=== PATIENT | female | born 1995 | race Caucasian/White ===

== ENCOUNTER 2023-09-19 15:00 | Emergency (ER) | payer MEDICAID, SELFPAY ==
[2023-09-19] VITALS (12 sets, daily range): BP systolic 113–123; BP diastolic 77–90; PULSE 80–99; RESP 16; TEMP 36.7; O2SAT 95–100; BMI 28.3
--- NOTE | 2023-09-19 17:06 | ED_ITS ---
HPI - Neuro Symptoms/Deficit General Time Seen by Provider: 17:06 Date Seen: 09/19/23 Chief Complaint: Neuro Symptoms/Altered Deficit Stated Complaint: stroke like symptoms Time Seen by Provider: 09/19/23 17:06 Source: patient and RN notes reviewed Mode of arrival: ambulatory Limitations: no limitations History of Present Illness HPI Narrative: Patient is a 27-year-old female with history of anxiety daily THC use who comes to the emergency room for evaluation of confusion. Patient notes that she works quite early at [employer]. She states that for approximately 2 hours she was ringing up the wrong items, stating 1 thing and doing another and not realizing that she was making errors. She notes that she was somewhat shaky at that time. Her boss told her to go home which she did. She states she laid down for a while and felt somewhat better. Her mom states that she noticed that Karey to seems to be off as well. Does note a headache earlier that has now resolved. Does use THC daily and did use some this morning. Gets this through [facility]. Denies any other drug use or alcohol use. Mom states that she has been having a hard time sleeping and usually takes trazodone 100 mg at approximately 2000 hours. 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 Has been diagnosed with bipolar in the past but then as subsequent physician did not think she had bipolar disorder. Does suffer from significant anxiety and depression. Currently living with her mom. No numbness or tingling of the extremities. Patient also notes that she feels like there is a hole in her tooth on her lower gum. Mom states that she has been diagnosed with impacted molars in the past. Patient does state that it hurts in this area. She has not had fever or chills or drainage from this area. Adamantly denies any possibility of as she is not sexually active. Related Data Home Medications Medication Instructions Recorded Confirmed etonogestrel 68 mg subdermal 1 implant subdermal ONCE 09/23/22 11/08/22 implant (Nexplanon) propranolol 20 mg tablet mg PO BID 09/23/22 11/08/22 Previous Rx's Medication Instructions Recorded ketoconazole 2 % topical cream 1 applic topical BID #30 grams 11/08/22 spironolactone 50 mg tablet 50 mg PO BID #60 tabs 11/08/22 Allergies Allergy/AdvReac Type Severity Reaction Status Date / Time amoxicillin Allergy Severe Hives Verified 11/08/22 14:05 Review of Systems Status of ROS: Reports: 10 or more systems reviewed and unremarkable except as noted in History and below [facility] Social History Smoking Status: Former smoker How often do you have a drink containing alcohol: never How often do you have six or more drinks on one occasion: Never AUDIT-C Alcohol total score: 0 Non-prescribed substance use: marijuana (any form) Exam Narrative: Exam Narrative: Patient is alert and oriented. Seems very anxious. Tremulous with sweaty hands. Pupils are very dilated at 6 mm. They are reactive and EOM is full. Head is atraumatic. Neck is supple with full range of motion. Heart with regular rate and rhythm and lungs are clear. Moving all extremities. Strength and motor is intact. Patient noted to answer questions and then is corrected by her mom. GCS is 15. Oral cavity shows somewhat swollen gum from erupting 2s 18. No significant erythema, pain with palpation or drainage in this area. No swelling of the jaw line. Const: Vital Signs, click to edit/add: Vital Signs - 24 hr 09/19/23 15:08 09/19/23 17:46 09/19/23 17:55 Temperature 98.1 F Pulse Rate 94 Pulse Rate [Pulse Oximeter] 95 Respiratory Rate 16 Blood Pressure Blood Pressure [Ri ght Upper Arm] 113/77 117/82 Pulse Oximetry 95 99 Oxygen Delivery Me thod Room Air 09/19/23 18:00 09/19/23 18:01 09/19/23 18:02 Temperature Pulse Rate 95 92 99 Pulse Rate [Pulse Oximeter] Respiratory Rate Blood Pressure 123/90 H Blood Pressure [Ri ght Upper Arm] Pulse Oximetry 99 98 99 Oxygen Delivery Me thod 09/19/23 18:27 09/19/23 18:28 09/19/23 18:30 Temperature Pulse Rate 94 90 91 Pulse Rate [Pulse Oximeter] Respiratory Rate Blood Pressure 117/87 Blood Pressure [Ri ght Upper Arm] Pulse Oximetry 100 100 99 Oxygen Delivery Me thod 09/19/23 19:06 09/19/23 19:07 09/19/23 19:15 Temperature Pulse Rate 80 84 81 Pulse Rate [Pulse Oximeter] Respiratory Rate Blood Pressure 120/85 Blood Pressure [Ri ght Upper Arm] Pulse Oximetry 100 99 100 Oxygen Delivery Me thod Course Course ED Course: Differential diagnosis includes but is not limited to anxiety, panic attack, drug induced state, stroke, infection. We will check labs to include CBC, comprehensive panel, magnesium, COVID influenza and RSV, CRP, urinalysis and drug screen. Reevaluation(s) Reevaluation #1: Patient given 1 L of normal saline. Seems to be more calm. Labs are reassuring with normal white count as well as CRP. Other electrolytes within normal limits. Urinalysis without evidence of UTI tox screen is positive for THC only. Negative for COVID influenza and RSV. Reevaluation #2: Head CT plus neck and head angio negative for acute findings. Vital Signs Vital signs: Initial Vital Signs Temperature 98.1 F 09/19/23 15:08 Temperature Source Temporal Artery Scan 09/19/23 15:08 Pulse Rate 95 09/19/23 15:08 Respiratory Rate 16 09/19/23 15:08 Blood Pressure 113/77 09/19/23 15:08 Blood Pressure Mean 89 09/19/23 15:08 Blood Pressure Position Sitting 09/19/23 15:08 Pulse Oximetry 95 09/19/23 15:08 Oxygen Delivery Method Room Air 09/19/23 15:08 Vital Signs Temperature 98.1 F 09/19/23 15:08 Pulse Rate 95 09/19/23 15:08 Respiratory Rate 16 09/19/23 15:08 Blood Pressure 113/77 09/19/23 15:08 Pulse Oximetry 95 09/19/23 15:08 Oxygen Delivery Method Room Air 09/19/23 15:08 Temperature 98.1 F 09/19/23 15:08 Pulse Rate 81 09/19/23 19:15 Respiratory Rate 16 09/19/23 15:08 Blood Pressure 120/85 09/19/23 19:06 Pulse Oximetry 100 09/19/23 19:15 Oxygen Delivery Method Room Air 09/19/23 15:08 MDM - Neuro Symptoms/Deficit MDM Narrative Medical decision making narrative: 1. Altered mentation-resolved. Patient noted to have dilated pupils as well as recent THC use and sleep deprivation. I think that this is a combination and that patient had significant anxiety almost panic attack earlier today. I have no evidence of a stroke, infection or other cause. I do talk to patient about following up with primary MD. They are telling me that she is not sleeping well and getting up early. She is going to take the day off of work tomorrow and try to sleep in. I do think she needs closer follow-up and attention to her anxiety which I think is a large part of the issue today. However, I am worried about her THC use as it is daily. This seemed to surprise her mother. Recommend against daily and routine use of THC. Would rather have her have a medication review and possibly a counselor. 2. Disposition-home at this time. Return for worsening symptoms Medical Records Attestation: I reviewed the patient's medical records. Lab Data Attestation: I reviewed the patient's lab results. Labs: Lab Results 09/19/23 09/19/23 09/19/23 Range/Units 17:30 17:35 17:35 WBC 6.61 (4.50-11.00) K/uL RBC 4.59 (4.00-5.20) m/uL Hgb 14.3 (12.0-16.0) gm/dL Hct 41.7 (33.0-51.0) % MCV 91 (80-100) fL MCH 31 (26-34) pg MCHC 34 (32-36) gm/dL RDW Coeff of Maryuri 11.6 (11.5-15.5) % Plt Count 253 (140-440) K/uL Neut % (Auto) 69.1 (42.0-72.0) % Lymph % (Auto) 23.3 (20-44) % [place] % (Auto) 7.1 (0.0-11.0) % Eos % (Auto) 0.3 (0.0-7.0) % Baso % (Auto) 0.2 (0.0-3.0) % Neut # (Auto) 4.57 (1.7-7.0) K/uL Lymph # (Auto) 1.54 (0.90-2.90) K/uL [place] # (Auto) 0.50 (0.00-0.90) K/UL Eos # (Auto) 0.02 (0.00-0.50) K/uL Baso # (Auto) 0.01 (0.00-0.30) K/uL Abs Immat Gran (auto) 0.00 (0.00-0.30) K/uL Imm/Tot Granulo (auto) 0.0 % Sodium 136 (135-149) mmol/L Potassium 4.0 (3.6-5.1) mmol/L Chloride 102 (96-114) mmol/L Carbon Dioxide 22 (20-32) mmol/L Anion Gap 12 (7-15) mEq/L BUN 8 (5-24) mg/dL Creatinine 0.6 (0.5-1.5) mg/dL Estimated Creat Clear 115.47 Estimated GFR 125 ml/min Glucose 97 (60-115) mg/dL Calcium 9.5 (8.4-10.6) mg/dL Magnesium 2.2 Cancelled (1.5-2.6) mg/dL Total Bilirubin 0.5 (0.1-1.5) mg/dL AST 28 (12-35) U/L ALT 23 (4-35) U/L Alkaline Phosphatase 92 (40-150) U/L C-Reactive Protein 0.6 (0.5-1.0) mg/dL Total Protein 8.3 (6.0-8.3) g/dL Albumin 5.1 H (3.3-5.0) g/dL Urine Color (Yellow) Urine Appearance (Clear) Urine pH (5.0-8.5) Ur Specific [place] (1.000-1.030) Urine Protein (Negative) Urine Glucose (UA) (Negative) Urine Ketones (Negative) Urine Blood (Negative) Urine Nitrite (Negative) Urine Bilirubin (Negative) Urine Urobilinogen (0.2-1.0) Ur Leukocyte Esterase (Negative) Urine RBC (0-2) Urine WBC (0-5) Ur Squamous Epith Cells (None-Few) Urine Bacteria (None) Urine Opiates Screen (Negative) Ur Oxycodone Screen (Negative) Urine Methadone Screen (Negative) Ur Barbiturates Screen (Negative) U Tricyclic Antidepress (Negative) Ur Phencyclidine Scrn (Negative) Ur Amphetamines Screen (Negative) U Methamphetamines Scrn (Negative) U Benzodiazepines Scrn (Negative) Urine Cocaine Screen (Negative) U Marijuana (THC) Screen (Negative) Ur Drug Screen Comment SARS-CoV-2 (PCR) Negative SARS-CoV-2 (Negative) Influenza Type A (PCR) Negative PCR FLU A (Negative) Influenza Type B (PCR) Negative PCR FLU B (Negative) RSV (PCR) Negative PCR RSV (Negative) Lab Acknowledgement 09/19/23 09/19/23 Range/Units 18:40 20:27 WBC (4.50-11.00) K/uL RBC (4.00-5.20) m/uL Hgb (12.0-16.0) gm/dL Hct (33.0-51.0) % MCV (80-100) fL MCH (26-34) pg MCHC (32-36) gm/dL RDW Coeff of Maryuri (11.5-15.5) % Plt Count (140-440) K/uL Neut % (Auto) (42.0-72.0) % Lymph % (Auto) (20-44) % [place] % (Auto) (0.0-11.0) % Eos % (Auto) (0.0-7.0) % Baso % (Auto) (0.0-3.0) % Neut # (Auto) (1.7-7.0) K/uL Lymph # (Auto) (0.90-2.90) K/uL [place] # (Auto) (0.00-0.90) K/UL Eos # (Auto) (0.00-0.50) K/uL Baso # (Auto) (0.00-0.30) K/uL Abs Immat Gran (auto) (0.00-0.30) K/uL Imm/Tot Granulo (auto) % Sodium (135-149) mmol/L Potassium (3.6-5.1) mmol/L Chloride (96-114) mmol/L Carbon Dioxide (20-32) mmol/L Anion Gap (7-15) mEq/L BUN (5-24) mg/dL Creatinine (0.5-1.5) mg/dL Estimated Creat Clear Estimated GFR ml/min Glucose (60-115) mg/dL Calcium (8.4-10.6) mg/dL Magnesium (1.5-2.6) mg/dL Total Bilirubin (0.1-1.5) mg/dL AST (12-35) U/L ALT (4-35) U/L Alkaline Phosphatase (40-150) U/L C-Reactive Protein (0.5-1.0) mg/dL Total Protein (6.0-8.3) g/dL Albumin (3.3-5.0) g/dL Urine Color Yellow (Yellow) Urine Appearance Clear (Clear) Urine pH 7.5 (5.0-8.5) Ur Specific [place] 1.010 (1.000-1.030) Urine Protein Negative (Negative) Urine Glucose (UA) Negative (Negative) Urine Ketones Negative (Negative) Urine Blood Negative (Negative) Urine Nitrite Negative (Negative) Urine Bilirubin Negative (Negative) Urine Urobilinogen 0.2 (0.2-1.0) Ur Leukocyte Esterase Negative (Negative) Urine RBC 0-2 (0-2) Urine WBC 0-2 (0-5) Ur Squamous Epith Cells Few (None-Few) Urine Bacteria None (None) Urine Opiates Screen Negative (Negative) Ur Oxycodone Screen Negative (Negative) Urine Methadone Screen Negative (Negative) Ur Barbiturates Screen Negative (Negative) U Tricyclic Antidepress Negative (Negative) Ur Phencyclidine Scrn Negative (Negative) Ur Amphetamines Screen Negative (Negative) U Methamphetamines Scrn Negative (Negative) U Benzodiazepines Scrn Negative (Negative) Urine Cocaine Screen Negative (Negative) U Marijuana (THC) Screen POSITIVE A (Negative) Ur Drug Screen Comment See Note SARS-CoV-2 (PCR) (Negative) Influenza Type A (PCR) (Negative) Influenza Type B (PCR) (Negative) RSV (PCR) (Negative) Lab Acknowledgement Test Added Imaging Data CT scan - head: Attestation: I have reviewed the pertinent imaging results. My impression: No evidence of acute processes Radiologist's impression: No CT evidence of acute cortical infarct. No loss of costa white matter differentiation. No hyperdense vessels to suggest intracranial thrombus. No acute intracranial hemorrhage. No mass effect or midline shift. No hydrocephalus or extra-axial collections. White matter is within normal limits for age. No acute osseous abnormalities. And left maxillary sinus retention cyst. Paranasal sinuses and mastoid air cells are otherwise clear. Normal soft tissues. IMPRESSION: IMPRESSION:1. No CT evidence of acute cortical infarct. No acute intracranial hemorrhage. No other acute intracranial findings. Angio head and neck: Attestation: I have reviewed the pertinent imaging results. Radiologist's impression: CTA head: No proximal or vessel occlusion or flow-limiting stenosis. CTA neck: No flow limiting stenosis. No evidence of dissection. Discharge Plan Discharge Clinical Impression: Anxiety, Episode of confusion Patient Disposition: Home w/ Parent or Adult Condition: Improved Instructions: Anxiety (ED) Additional Instructions: Recommend decreasing caffeine at this time. I would like you to follow-up with your primary MD to see if there should be a change in your medications to assist with sleep. Try to sleep in tomorrow morning. Recommend against daily THC use. Return to the emergency room for worsening symptoms. Activity Level: No Restrictions Discharge Diet: Regular Prescriptions: No Action propranolol 20 mg tablet PO BID Patient Comments: TAKE 1 TABLET BY MOUTH TWICE DAILY FOR TREMOR Nexplanon 68 mg implant 1 implant subdermal ONCE Rx Instructions: as a single dose spironolactone 50 mg tablet 50 mg PO BID Qty: 60 1RF ketoconazole 2 % cream 1 applic topical BID Qty: 30 1RF Follow Up/Referrals: Benjamin Tracey PA-C [Primary Care Provider] - Stand Alone Forms: [facility] Info Instructions
--- NOTE | 2023-09-19 17:23 | CRLHL7_ITS ---
For Patients: As a result of the Century Cures Act, medical imaging exams and procedure reports are released immediately into your electronic medical record. You may view this report before your referring provider. If you have questions, please contact your health care provider. DATE: 09/19/2023 CLINICAL HISTORY: Patient with confusion. TECHNIQUE: Standard helical CT image acquisition of the neck up to the skull base after bolus intravenous contrast enhancement. 2D and 3D MIP images for post-processing were performed and interpreted on an independent workstation and 3D images were permanently archived. COMPARISON: CT same day. FINDINGS: The origins of the great vessels from the aortic arch are patent. The origin of the right vertebral artery is patent. The origin of the left vertebral artery is patent. The common carotid arteries are patent. There is no stenosis at the origin of the right internal carotid artery. There is no stenosis at the origin of the left internal carotid artery. The rest of the cervical segments of the internal carotid arteries are patent up to the skull base. The left vertebral artery is dominant. The cervical segments of the vertebral arteries are patent up to the skull base. The visualized lung apices are unremarkable. The thyroid gland is unremarkable. The soft tissues of the neck are unremarkable. There are degenerative changes in the cervical spine. IMPRESSION: Normal CT angiogram of the neck. Please note that all CT scans at this facility use dose modulation, iterative reconstruction, and/or weight-based dosing when appropriate to reduce radiation dose to as low as reasonably achievable. Dictated by Yuniel Pena MD @ 09/20/2023 10:22:30 AM (Electronically Signed)
--- NOTE | 2023-09-19 17:23 | CRLHL7_ITS ---
For Patients: As a result of the Century Cures Act, medical imaging exams and procedure reports are released immediately into your electronic medical record. You may view this report before your referring provider. If you have questions, please contact your health care provider. INDICATION: Confusion. TECHNIQUE: CT of the head without contrast. Coronal and sagittal reformats are included. COMPARISON: None. FINDINGS: No CT evidence of acute cortical infarct. No loss of costa white matter differentiation. No hyperdense vessels to suggest intracranial thrombus. No acute intracranial hemorrhage. No mass effect or midline shift. No hydrocephalus or extra-axial collections. White matter is within normal limits for age. No acute osseous abnormalities. And left maxillary sinus retention cyst. Paranasal sinuses and mastoid air cells are otherwise clear. Normal soft tissues. IMPRESSION: IMPRESSION:1. No CT evidence of acute cortical infarct. No acute intracranial hemorrhage. No other acute intracranial findings. Please note that all CT scans at this facility use dose modulation, iterative reconstruction, and/or weight-based dosing when appropriate to reduce radiation dose to as low as reasonably achievable. Dictated by Juan Ramon Deal MD @ 09/19/2023 7:28:19 PM (Electronically Signed)
--- NOTE | 2023-09-19 17:23 | CRLHL7_ITS ---
For Patients: As a result of the Century Cures Act, medical imaging exams and procedure reports are released immediately into your electronic medical record. You may view this report before your referring provider. If you have questions, please contact your health care provider. DATE: 09/20/2023 CLINICAL HISTORY: Patient with confusion. TECHNIQUE: Standard helical CT image acquisition through the intracranial circulation following intravenous administration of contrast material with bolus tracking. 2D and 3D MIP images for post-processing were performed and interpreted on an independent workstation and 3D images were permanently archived. COMPARISON: CT same day. FINDINGS: There is no cerebral aneurysm or large vessel occlusion. The right internal carotid artery is normal. The right middle cerebral artery and its branches are normal. The right anterior cerebral artery and its branches are normal. The left internal carotid artery is normal. The left middle cerebral artery and its branches are normal. The left anterior cerebral artery and its branches are normal. The anterior communicating artery is well visualized and appears normal. The right vertebral artery and PICA are normal. The left vertebral artery and PICA are normal. The vertebral arteries are codominant. The basilar artery is patent and appears normal. The right posterior cerebral artery is normal. The left posterior cerebral artery is normal. The visualized venous structures are patent. IMPRESSION: Normal CT angiogram of the head without intracranial aneurysm or other neurovascular abnormality. Please note that all CT scans at this facility use dose modulation, iterative reconstruction, and/or weight-based dosing when appropriate to reduce radiation dose to as low as reasonably achievable. Dictated by Yuniel Pena MD @ 09/20/2023 10:24:41 AM (Electronically Signed)
[2023-09-19 18:00] LABS: Basophils Absolute Auto 0.01 K/uL (0.00-0.30); Basophils Percent Auto 0.2 % (0.0-3.0); Eosinophils Absolute Auto 0.02 K/uL (0.00-0.50); Eosinophils Percent Auto 0.3 % (0.0-7.0); Hematocrit 41.7 % (33.0-51.0); Hemoglobin* 14.3 gm/dL (12.0-16.0); Lymphocytes Absolute Auto 1.54 K/uL (0.90-2.90); Lymphocytes Percent Auto 23.3 % (20-44); Mean Corpuscular HGB Conc 34 gm/dL (32-36); Mean Corpuscular Hemoglobin 31 pg (26-34); Mean Corpuscular Volume 91 fL (80-100); Monocytes Percent Auto 7.1 % (0.0-11.0); Neutrophils Absolute Auto 4.57 K/uL (1.7-7.0); Neutrophils Percent Auto 69.1 % (42.0-72.0); Platelet Count* 253 K/uL (140-440); RDW Coefficient of Variation % 11.6 % (11.5-15.5); Red Blood Count 4.59 m/uL (4.00-5.20); White Blood Count* 6.61 K/uL (4.50-11.00)
[2023-09-19 18:07] LABS: Slide Review Reflex No
[2023-09-19 18:13] LABS: Albumin* 5.1 g/dL (3.3-5.0); Chloride* 102 mmol/L (96-114); Sodium* 136 mmol/L (135-149)
[2023-09-19 18:16] LABS: Anion Gap 12 mEq/L (7-15); Aspartate Amino Transferase* 28 U/L (12-35); Bilirubin Total* 0.5 mg/dL (0.1-1.5); Carbon Dioxide* 22 mmol/L (20-32); Creatinine* 0.6 mg/dL (0.5-1.5); Est. Creatinine Clearance* 115.47; Estimated Glomerular Filt Rate 125 ml/min
[2023-09-19 18:17] LABS: Alanine Aminotransferase* 23 U/L (4-35); Alkaline Phosphatase* 92 U/L (40-150); Blood Urea Nitrogen* 8 mg/dL (5-24); Calcium* 9.5 mg/dL (8.4-10.6); Glucose* 97 mg/dL (60-115); Magnesium* 2.2 mg/dL (1.5-2.6); Total Protein* 8.3 g/dL (6.0-8.3)
[2023-09-19 18:19] LABS: C Reactive Protein* 0.6 mg/dL (0.5-1.0)
[2023-09-19 18:43] LABS: PCR FLU A Negative PCR FLU A (Negative); PCR FLU B Negative PCR FLU B (Negative); PCR RSV Negative PCR RSV (Negative); SARS PCR* Negative SARS-CoV-2 (Negative)
[2023-09-19 18:53] LABS: Appearance Urine Clear (Clear); Bilirubin Urine Negative (Negative); Blood Urine Negative (Negative); Color Urine Yellow (Yellow); Glucose Urine Negative (Negative); Ketones Urine Negative (Negative); Leukocyte Esterase Urine Negative (Negative); Nitrite Urine Negative (Negative); Protein Urine Negative (Negative); Urobilinogen Urine 0.2 (0.2-1.0); pH Urine 7.5 (5.0-8.5)
[2023-09-19 18:59] LABS: Amphetamine Screen Urine Negative (Negative); Barbiturate Screen Urine Negative (Negative); Benzodiazepines Screen Urine Negative (Negative); Cannabinoid Screen Urine POSITIVE (Negative); Cocaine Screen Urine Negative (Negative); Methadone Screen Urine Negative (Negative); Methamphetamines Screen Urine Negative (Negative); Opiate Screen Urine Negative (Negative); Oxycodone Screen Urine Negative (Negative); Phencyclidine Screen Urine Negative (Negative); Tricyclic Antidepressant Urine Negative (Negative)
[2023-09-19 19:19] LABS: RBC Urine 0-2 (0-2); WBC Urine 0-2 (0-5)
[2023-09-19 19:20] LABS: Squamous Epithelial Cell Urine Few (None-Few)
== END 2023-09-19 21:14 | disposition home or self-care (01) ==
PROVIDERS: Emergency Provider Family Medicine; PCP Physician Assistant Medical
DX: F41.9 Anxiety disorder, unspecified (principal); R41.0 Disorientation, unspecified
CPT/HCPCS: 36415; 70450; 70496; 70498; 80053; 80306; 81001; 83735; 85025; 86140; 87040; 87631; 99284; 99285; Q9967

== ENCOUNTER 2024-05-21 18:32 | Outpatient (CLI) | payer MEDICAID, SELFPAY ==
[2024-05-21 22:36] LABS: Chlamydia DNA Amplified* NOT DETECTED (No Detected); GC DNA Amplified* NOT DETECTED (No Detected)
[2024-05-23 21:36] LABS: HPV Source Cervix; HPV, High Risk by TMA Not Detected
== END 2024-05-21 18:33 | disposition home or self-care (01) ==
PROVIDERS: PCP Physician Assistant Medical; Visit Provider Registered Nurse
DX: Z34.91 Encounter for supervision of normal pregnancy, unspecified, first trimester (principal); Z12.4 Encounter for screening for malignant neoplasm of cervix; Z3A.11 11 weeks gestation of pregnancy
CPT/HCPCS: 76817; 86592; 86703; 86704; 86706; 86762; 86787; 86803; 86850; 86900; 86901; 87086; 87340; 87491; 87591; 87624; 87625; 88141; 88142

== ENCOUNTER 2024-06-24 18:25 | Outpatient (CLI) | payer MEDICAID, SELFPAY | END 2024-06-24 18:26 | disposition home or self-care (01) | PROVIDERS: PCP Physician Assistant Medical; Visit Provider Physician Assistant | DX: R53.83 Other fatigue (principal); Z79.899 Other long term (current) drug therapy | CPT/HCPCS: 80175; 84443 ==

== ENCOUNTER 2024-07-23 15:39 | Outpatient (CLI) | payer BC, SELFPAY ==
--- NOTE | 2024-07-23 15:45 | CRLHL7_ITS ---
For Patients: As a result of the Century Cures Act, medical imaging exams and procedure reports are released immediately into your electronic medical record. You may view this report before your referring provider. If you have questions, please contact your health care provider. INDICATION: Evaluate anatomy. COMPARISON: 05/21/2024 TECHNIQUE: Real time orozco scale imaging of the fetus was performed as well as color Doppler analysis of the umbilical vessels. FINDINGS: Sonographic imaging demonstrates a single living intrauterine gestation. Fetus demonstrates a regular cardiac rate of 131 beats per minute. Fetus has a vertex position. The placenta lies posteriorly without evidence of placenta previa. Edge of the placenta 6.1 cm from the internal cervical os. Amniotic fluid volume appears normal. Single deepest vertical pocket: 4.1 cm. The cervix is closed and measures 3.8 cm in length. The composite ultrasound gestational age is calculated at 19 weeks 3 days with an estimated sonographic due date of 12/14/2024. The estimated weight is 303 grams which lies at the 20th %. The following biometric measurements were obtained: Biparietal diameter: 4.1 cm/18 weeks 3 days less than 3rd% Head circumference: 16.7 cm/19 weeks 3 days 12th% Abdominal circumference: 14.1 cm/19 weeks 3 days 22nd% Femur length: 3.2 cm/20 weeks 0 days 37th% The HC/AC ratio measures: 1.19 range (1.08-1.26) On anatomic survey, there is a normal appearance of the cerebral ventricles, cavum septi pellucidi, cisterna magna and cerebellum. The nose, lips, and facial profile appear normal. The cervical, thoracic and lumbar spine are well visualized and appear normal. There is a normal four-chamber heart view and the left and right ventricular outflow tracts appear normal. The diaphragm and stomach appear normal. Normal bladder. Renal pelvis measures 2 millimeters bilaterally, considered within normal limits. There is a normal three-vessel cord and there is an eccentric cord insertion site. The four extremities appear normal. The CSP ratio is normal. IMPRESSION: Concordance of clinical and sonographic dating. CSP ratio normal. Renal pelvis measurements are within normal limits. BPD less than 3rd percentile. Dictated by Jori Fletcher MD @ 07/24/2024 10:09:39 AM (Electronically Signed)
== END 2024-07-23 15:40 | disposition home or self-care (01) ==
LOC: US 15:40
PROVIDERS: PCP Physician Assistant Medical; Visit Provider Physician Assistant
DX: Z34.92 Encounter for supervision of normal pregnancy, unspecified, second trimester (principal); Z3A.19 19 weeks gestation of pregnancy
CPT/HCPCS: 76805

== ENCOUNTER 2024-09-16 11:19 | Outpatient (CLI) | payer BC, SELFPAY | END 2024-09-16 11:20 | disposition home or self-care (01) | LOC: NFLDREF 09-18 09:06 | PROVIDERS: PCP Physician Assistant Medical; Referring Provider Physician Assistant Medical; Visit Provider Obstetrics & Gynecology | DX: Z34.93 Encounter for supervision of normal pregnancy, unspecified, third trimester (principal); Z3A.28 28 weeks gestation of pregnancy | CPT/HCPCS: 86592 ==

== ENCOUNTER 2024-11-11 12:03 | Outpatient (CLI) | payer BC, SELFPAY ==
--- NOTE | 2024-11-11 12:15 | CRLHL7_ITS ---
For Patients: As a result of the Century Cures Act, medical imaging exams and procedure reports are released immediately into your electronic medical record. You may view this report before your referring provider. If you have questions, please contact your health care provider. OB ULTRASOUND FOLLOW-UP 11/11/2024 CLINICAL HISTORY: Dilated renal pelvis (bilateral). COMPARISON: 10/15/2024, 09/23/2024, 08/26/2024. TECHNIQUE: Real time orozco scale imaging of the fetus was performed transabdominal. COMPARISON: 10/15/2024, 09/23/2024, 08/26/2024. FINDINGS: GAVIN by LMP/US: 12/09/2024. GA: 36 weeks 0 days. GESTATION: Single. CERVIX: Not visualized. POSITIONING: Breech. AMNIOTIC FLUID: 3.3 cm SDP. PLACENTA: Technique: TA. Placenta Position: Posterior. DOPPLERS: Heart Rate: 149 bpm. BIOMETRY: BPD: 8.6 cm, 34 weeks 4 days. 19.0% HC: 34.8 cm, 40 weeks 2 days. >97% AC: 31.3 cm, 35 weeks 2 days. 38.4% FL: 6.4 cm, 33 weeks 0 days. <3% FL/AC Ratio: 20.36% MA/AC Ratio: 1.11. EFW: 2587 grams, 5 lb 11 oz. Age by this US: 35 weeks 6 days. GAVIN by this US: 12/10/2024. Percentile by GAVIN: 26.3% IMPRESSION: 1. Sonographic gestational age 35 weeks 6 days and sonographic due date 12/10/2024. Good correlation with dates. Normal interval growth. 2. Estimated weight 26th percentile. Abdominal circumference 38th percentile. Head circumference greater than 97th percentile. Femur length less than 3rd percentile. Decreased HC/AC ratio. 3. Bilateral renal pelviectasis with the left renal pelvis measuring 6.9 mm and the right renal pelvis measuring 8 mm. Left ureteral is also distended and measures 2.3 mm. Post follow-up recommended. 4. Bladder appears normal. Amniotic fluid single deepest pocket 3.3 cm. Jori Fletcher M.D. [email or web address] Transcribed: 8:35 am DW/Dictated by: Jori Fletcher MD @ 11/12/2024 6:26:00 AM (Electronically Signed)
== END 2024-11-11 12:04 | disposition home or self-care (01) ==
LOC: US 12:03
PROVIDERS: PCP Physician Assistant Medical; Visit Provider Obstetrics & Gynecology
DX: O28.3 Abnormal ultrasonic finding on antenatal screening of mother (principal); O35.EXX0 Maternal care for other (suspected) fetal abnormality and damage, fetal genitourinary anomalies, not applicable or unspecified; Z3A.36 36 weeks gestation of pregnancy
CPT/HCPCS: 76816; 87081; 87653

== ENCOUNTER 2024-11-11 13:50 | Outpatient (CLI) | payer BC, SELFPAY ==
[2024-11-12 20:42] LABS: Strep B DNA Probe Negative (Negative)
[2024-11-12 21:12] LABS: Strep B Susceptibility Needed? No
== END 2024-11-11 13:51 | disposition home or self-care (01) ==
LOC: NFLDREF 13:51
PROVIDERS: PCP Physician Assistant Medical; Visit Provider Obstetrics & Gynecology
DX: Z34.83 Encounter for supervision of other normal pregnancy, third trimester (principal)
CPT/HCPCS: 87081; 87653

== ENCOUNTER 2024-11-18 07:08 | Outpatient (CLI) | payer BC, SELFPAY ==
[2024-11-18 07:36] VITALS: BP 107/73; PULSE 68; RESP 16; TEMP 36.6
--- NOTE | 2024-11-18 08:01 | P.PCN_ITS ---
Procedure Note Time Seen by Provider: 08:01 Date Seen: 11/18/24 Date of procedure: 11/18/24 Will [facility] bill your pro fee for this procedure?: Yes Procedure Description: I discussed with patient that 3-4% of pregnancies are breech at term.? If there is a concern in for malpresentation, we assessed with ultrasound at 36 weeks.? If the fetus continues to be breech at 36 weeks, she has the option of attempting an external cephalic version at 37 weeks.? We discussed the rationale for doing the procedure at 37 weeks (technically feasible, fetus is term should delivery be indicated, and lower risk of reversion). Contraindication to external cephalic version is anything that is a contraindication to vaginal delivery such as a placenta previa, multiple previous CD etc. Patient doesn?t have any contraindications. The benefit of an external cephalic version is fewer delivery.? There is a lower odd of endometritis, sepsis, hospital stay greater than 7 days.? It is important to know that there is no difference for low APGARs, low umbilical vein pH, and when comparing external cephalic version with subsequent vaginal delivery to planned delivery at term. The risks of external cephalic version: heart rate changes (most common in stabilizes when procedure is discontinued). ?Overall, serious adverse effects are very low, all < 1%.? These include placental abruption, umbilical cord prol apse, rupture of membranes, stillbirth, maternal hemorrhage.? The risk of an emergency delivery is also low. We discussed factors affecting success.? The overall success rate quoted in the literature is 58%.? Factors that her favorable towards a successful external cephalic version are increased parity, transverse or oblique presentation, normal amniotic volume, normal maternal BMI, and posterior placental location. Factors more associated with failure is nulliparity, advanced dilation, weight less than 2500g, anterior placenta, and low station. She will be given terbutaline for tocolysis prior to the procedure.? We discussed that terbutaline has doubled the rate of ECV success.? With regards to anesthesia, neuraxial anesthesia is available to her should she desire. I will be performing an ultrasound prior to the ECV to confirm positioning.? Additionally, if we are to proceed with the external cephalic version we will get a reactive NST prior to proceeding.? During the procedure intermittent ultrasonography will be used to assess for status.? If there is any concern for or maternal well being the procedure will be terminated immediately. After the procedure, regardless of success or not, she and fetus will be monitored for at least 30 minute prior to discharge. Patient does not require RhoGAM as she is Rh positive. Procedure Description: PREOPERATIVE DIAGNOSIS: 1. Intrauterine at 37.0 weeks gestation. 2. Maryse Breech presentation. POSTOPERATIVE DIAGNOSIS: 1. Intrauterine at 37.0 weeks gestation. 2. Maryse Breech presentation. PROCEDURE: 1. Nonstress test. 2. Limited OB ultrasound. 3. External cephalic version - unsuccessful SURGEON: MD Rene PROJECT MGR: Cecilia Lanza CNM ANESTHESIA: None. COMPLICATIONS: None. FINDINGS: Nonstress test: heart rate baseline 130 beats per minute, moderate variability, 15 x 15 accelerations present, no decelerations, category 1. Limited OB ultrasound: Single, living, intrauterine gestation in a maryse breech presentation with the back along the maternal left, normal amniotic fluid volume (deepest vertical pocket 3.85 cm). PROCEDURE NOTE: A nonstress test was performed, which was reactive and reassuring. A limited OB ultrasound was performed at the bedside to determine position. Findings noted above. Informed consent was obtained for external cephalic version. Terbutaline 0.25 mg was administered to the patient subcutaneously. External cephalic version was attempted. I applied upward pressure to the breech and Pool, CNM applied pressure to the vertex, and we attempted to gently coax the fetus in a forward roll in a counter-clockwise direction. breech is low in the pelvis and had minimal mobility. I attempted to elevated breech out of the pelvis one more time but was unsuccessful. Patient was not tolerating the manuvere well either. We decided to terminate the procedure due to low chance of success and maternal discomfort. heart tones were noted to be normal after all attempts. The patient tolerated the procedure well. monitoring for 1 hour after the procedure was continued to be reassuring. Anesthesia: None Condition: stable Disposition: same day discharge. Will follow up with visit to schedule delivery. Strict return and labor precautions given.
[2024-11-18] MEDS: TERBUTALINE 1 MG/ML INJ 0.25 MG SUBCUT (08:10)
--- NOTE | 2024-11-18 21:30 | PC.OBNST ---
NST Note NST Note Start: 11/18/24 07:21 Freq: ONCE Status: Active Protocol: Document 11/18/24 09:25 WK (Rec: 11/18/24 21:29 WK [id number]) NST Note 2 Para (# of births) 0 EDC 12/09/24 Gestational Age In Weeks & Days 37 Weeks & 0 Days Patient Presented with Complaint(s) of Other Other Complaints ECV Reactive Yes RN Megan RNC Date 11/18/24 Reactive Yes SADIA Jeffrey RN Date 11/18/24 OB NST charge Yes Complete NST Note via Write Note Yes The provider's electronic signature indicates the NST is reactive/appropriate for gestational age. *Note to provider: If an addendum is required, open the patient's chart and click on the note under the Nurse/Allied Health tab.
== END 2024-11-18 09:48 | disposition home or self-care (01) ==
LOC: OB CLI 07:09 → OB 07:12
PROVIDERS: PCP Physician Assistant Medical; Visit Provider Obstetrics & Gynecology
DX: O32.1XX0 Maternal care for breech presentation, not applicable or unspecified (principal); Z3A.36 36 weeks gestation of pregnancy
CPT/HCPCS: 59025; 59412; 76815; G0463; J3105

== ENCOUNTER 2024-12-03 08:05 | Inpatient (IN) | payer BC, SELFPAY ==
[2024-12-03] VITALS (18 sets, daily range): BP systolic 103–138; BP diastolic 66–82; PULSE 60–72; RESP 16–17; TEMP 36.7–37.2; O2SAT 96–99; BMI 32.3
[2024-12-03] MEDS: LACTATED RINGERS 1000 ML 1,000 ML IV (08:35)
--- NOTE | 2024-12-03 08:47 | PM.OBHPCS1 ---
OB - H&P: HPI History of Present Illness Chief complaint: maternity Narrative: Luciana Iqbal is a 29 year old female who presents at 39 week 1 day gestational age by first-trimester ultrasound for scheduled primary delivery. is complicated by breech malpresentation (status post failed ECV), bilateral renal tract dilation, maternal autism, anxiety and ADHD. Please see Dr. Nielsen is a history and physical from 11/19/2024 for complete details. Luciana is feeling well this morning. Denies regular/painful uterine contractions, vaginal bleeding or leaking of fluid. Endorses active movement. She is ready for her planned surgery. Specific Issues/Plans G 2 P 0010 Boyfriend: Merrick Baby: Girl! [place] NIPT normal #Breech presentation at 36 weeks Failed ECV 11/18 Primary scheduled for 12/03 # Autism, Anxiety, ADHD. Stable mood at first OB. Taking fluoxetine and lamotrigine for mood management. Psychiatrist: Bereince Carter NP. They may need to monitor Lamictal levels to ensure she is on appropriate dose. Advised her to take 400mcg folic acid daily. [facility] consult 07/08: No anomalies detected, however some views were suboptimal. Growth c/w gestational age. EFW 14%. ROS: normal. Cervix normal. She is scheduled for follow-up ultrasound in 3 weeks to reassess anatomy that was suboptimally seen on 07/08/24. Lamictal level 06/24/24: <0.9 (L). Generally considered compatible with . Follow for apnea, rash, drowsiness, poor sucking. # Bilateral urinary tract dilatation (kidneys and ureters) US on 09/23: R renal pelvis 7.6mm, L renal pelvis 7.1mm and both ureters were dilated. EFW 20%. US on 10/15: R 7.3mm, L 8.2mm and both ureters dilated. EFW 26%. [ ] Pediatric urology telemedicine visit: 10/30/24 - please update plan if any changes after this visit Per [facility], recommend recheck 36 weeks, if stable ok to deliver at MI&. If increasing or decreasing amniotic fluid > transfer to [facility] or [place]. [ x] 36 weeks ordered - stable urinary tract dilation and ureteral dilation. Needs follow-up. Sheet Metal Superintendent should be notified. Patient to follow up with peds urology 2 weeks after Discussed option of daily low-dose amoxicillin 10-15 mg/kg/d; at parental discretion. #20 week FAS: BPD <3rd percentile. Prominent 3rd ventricle on initial FAS report. Radiologist notes normal CSP ratio/NO prominence in 3rd ventricle. H&P: 11/19/24 Dr. Nielsen Imagin05/22/2024: 11 weeks, 1 day by CRL. 07/12/24: Level 2. Posterior placenta without previa, 3 vessel cord, MVP 3.7 cm, EFW 14%, AC 36%. 07/23/2024: EFW 20%, AC 22%, BPD less than 3%, HC 12%. Normal anatomy. 08/01/2024: Level 2. Cephalic, normal fluid, EFW 17%, AC 33%, posterior placenta without previa. Bilateral urinary tract dilation; right renal pelvis 4.8 mm and left renal pelvis 4.6 mm. 08/26/2024: Vtx, post placenta, no previa, 3 vessel cord. SDP 6.2cm. EFW: 17%. R renal pelvis 7.1mm, L renal pelvis 7.4mm UTD A2-3 with evidence of calyceal and ureteral dilation. 10/15/24 MFM US: EFW 1812g at 26%ile, AC 48%. Bilateral renal pelvis and ureter dilation, R 7.3mm and L 8.2mm. MVP 4.7cm. F/u with peds neph on 10/30. 11/11/24: Breech. SDP 3.3 cm. EFW 26.3%, AC 38.4%, HC greater than 97%, BPD 19%. Left renal pelvis 6.9 mm, right renal pelvis 8 mm. Left ureter also distended at 2.3 mm. follow-up is recommended. Vaccinations: Flu: 05/21/2024 Covid: Booster of 05/21/2024 Tdap: 09/30/24 RSV: 10/14/24 32 week mental health: 10/14/24 Hgb: 10/28/24 GBS: Negative on 11/11/24 Last pap: [facility] Medical History (Updated 12/03/24 @ 10:02 by Paola Liz MD) Hydradenitis ?L73.2 - Hidradenitis suppurativa (ICD-10) LGSIL on Pap smear of cervix ?R87.612 - Low grade squamous intraepithelial lesion on cytologic smear of cervix (LGSIL) (ICD-10) Essential tremor ?G25.0 - Essential tremor (ICD-10) PID (acute pelvic inflammatory disease) ?N73.0 - Acute parametritis and pelvic cellulitis (ICD-10) History of depression ?Z86.59 - Personal history of other mental and behavioral disorders (ICD-10) Cellulitis ?L03.90 - Cellulitis, unspecified (ICD-10) Surgical History (Updated 05/21/24 @ 19:22 by Jewell Montreroso CNP) history ?Z87.59 - Personal history of other complications of , childbirth and the puerperium (ICD-10) Family History Other Alcohol dependence Asthma Breast cancer Depression Diabetes High blood pressure High cholesterol Stroke Social History Narrative: Lives in her own house with boyfriend and cat in [place]. What is your current living situation?: I presently have a place to live Problems where you live: no known problems In the past 12 months, utilities in danger of being shut off: no In past 12 months, lack of transportation kept you from medical appts, meetings, work, or getting things needed for daily living: no In the past 12 mos, have been you worried that your food would run out before you had money to buy more?: never true In the past 12 mos, the food you bought just didn't last and you didn't have money to buy more?: never true Smoking Status: Former smoker How often do you have a drink containing alcohol: never How often do you have six or more drinks on one occasion: Never AUDIT-C Alcohol total score: 0 Non-prescribed substance use: marijuana (any form) How often does anyone, including family, friends and others, physically hurt you: never How often does anyone, including family, friends and others, insult or talk down to you: never How often does anyone, including family, friends and others, threaten you with harm: never How often does anyone, including family, friends and others, scream or curse at you: never Meds Home Medications and Allergies Home Medications ?Medication ?Instructions ?Recorded ?Confirmed ?Type fluoxetine 20 mg capsule 40 mg PO DAILY 05/21/24 12/03/24 History lamotrigine 100 mg tablet 100 mg PO DAILY depressive disorder 05/21/24 12/03/24 History BVT-ceoy-JS-omega 3-fat com #1 27 1 cap PO DAILY 06/24/24 12/03/24 History mg-1 mg-300 mg capsule Allergies Allergy/AdvReac Type Severity Reaction Status Date / Time amoxicillin Allergy Severe Hives Verified 12/03/24 08:48 OB - H&P: Exam Physical Exam: Vital signs: Temp Pulse Resp BP 98.1 F 72 16 114/73 12/03/24 08:32 12/03/24 08:32 12/03/24 08:32 12/03/24 08:32 Narrative: General: Alert and oriented, in no acute distress Psych: Appropriate mood and affect Abdomen: Gravid. Oliver breech malpresentation confirmed on ultrasound. Image printed to be scanned to record. NST: Reactive. Baseline 135 bpm, moderate variability, several qualifying 15x15 accels present, no decels [place]: No regular contractions OB - Results Labs Labs: Short CBC 12/03/24 Range/Units 08:28 WBC Cancelled Hgb Cancelled Hct Cancelled Plt Count Cancelled Assessment and Plan Assessment and plan (1) pyelectasis: Status: Acute (2) High risk medication use: Status: Acute (3) ADHD (attention deficit hyperactivity disorder): Status: Acute (4) Anxiety: Status: Acute (5) Autism: Status: Acute (6) Malpresentation of fetus: Status: Acute Plan Luciana is a 29yo at 39w1d GA who presents for scheduled primary for breech malpresentation. She is s/p unsuccessful ECV, bedside US confirms breech presentation today. Pregnnacy is otherwise complicated by bilateral pyelectasis, maternal autism, ADHD and anxiety. We again reviewed the risks and benefits of primary delivery. Explained this is medically indicated in the setting of malpresentation. Risks include bleeding, infection, damage to surrounding structures (uterus, tubes, ovaries, bowel, bladder, blood vessel, baby). She was previously consented by Dr. Nielsen, where I did resigned her consent to verify our discussion this morning. She has no questions or concerns about the planned procedure. Plan to proceed with gentamicin and clindamycin in the setting of anaphylaxis to amoxicillin. Recommend consideration for allergy testing prior to any future pregnancies or antenatally. Blood type O positive, no cord blood. GBS negative. Pediatrics to attend delivery in the setting of breech malpresentation and pyelectasis.
[2024-12-03 08:58] LABS: Basophils Absolute Auto 0.02 K/uL (0.00-0.30); Basophils Percent Auto 0.2 % (0.0-3.0); Eosinophils Percent Auto 1.2 % (0.0-7.0); Hematocrit 37.5 % (33.0-51.0); Hemoglobin* 12.9 gm/dL (12.0-16.0); Immature Granulocytes Abs Auto 0.07 K/uL (0.00-0.30); Immature Granulocytes Pct Auto 0.9 %; Lymphocytes Absolute Auto 1.63 K/uL (0.90-2.90); Mean Corpuscular HGB Conc 34 gm/dL (32-36); Mean Corpuscular Hemoglobin 31 pg (26-34); Mean Corpuscular Volume 90 fL (80-100); Neutrophils Percent Auto 68.7 % (42.0-72.0); Platelet Count* 195 K/uL (140-440); RDW Coefficient of Variation % 12.2 % (11.5-15.5); Red Blood Count 4.19 m/uL (4.00-5.20); White Blood Count* 8.15 K/uL (4.50-11.00)
[2024-12-03 09:03] LABS: Slide Review Reflex No
[2024-12-03] MEDS: CLINDAMYCIN 900 MG/50 ML-D5W 900 MG/50 ML PIGGYBACK 100 MG IVPB (09:10)
[2024-12-03] MEDS: SODIUM CHLORIDE 0.9% IVPB (09:15)
[2024-12-03] MEDS: GENTAMICIN IVPB (09:15)
--- NOTE | 2024-12-03 10:04 | PM.OBPRCCS ---
Procedure Time Seen by Provider: 10:04 Date of procedure: 12/03/24 Pre-op diagnosis: Breech malpresentation, pyelectasis, maternal autism, ADHD and anxiety Post-op diagnosis: same Procedure Done: Global Will [facility] bill your pro fee for this procedure?: Yes Blood Loss Measurement Type: QBL (742) Bakri Used: No IV fluids (mL): 1,000 Urine Output (mL): 100 Urine Output Comment: Pale yellow Surgeon: Tim Liz MD Anesthesia Type: Spinal Findings: Liveborn female fetus in maryse breech presentation Unremarkable uterus, bilateral fallopian tubes and ovaries Procedure Name: Primary delivery Procedure Description: Patient was taken to the operating room with IV running. She received gentamicin and clindamycin in preoperative prophylaxis due to a history of anaphylaxis with amoxicillin. Spinal anesthesia was administered. Woodall catheter was inserted. She was prepped and draped in the usual sterile fashion. Anesthesia was tested and found to be adequate. A low-transverse skin incision was made with a scalpel and carried through to the underlying layer of fascia with the scalpel. The subcutaneous fat was dissected off the underlying fascia with Bovie and blunt dissection. The fascia was nicked in the midline with a scalpel, and this incision was extended laterally with scissors. The rectus muscles were in the midline. Peritoneum was identified and entered bluntly. Bovie was used to widen this opening laterally. Dwaine O retractor was inserted and tightened down, providing excellent visualization of the lower uterine segment. The bladder reflection was found to be advanced along the lower uterine segment. A bladder flap was created with a combination of sharp and blunt dissection. Low-transverse uterine incision was made with a scalpel. Incision was widened bluntly. The infant's breech was grasped through the hysterotomy in left sacrum transverse position and elevated to the hysterotomy. Fundal pressure was applied and gentle traction was applied to deliver the breech. lower extremities were delivered via Pinard maneuver atraumatically. The was rotated and left upper extremity was swept across the body and delivered via Loveset maneuver. The fetus was rotated 180 degrees and the same was performed to deliver the right upper extremity. Flexion of the neck was accomplished by applying gentle pressure on the maxilla, where head delivered atraumatically. No nuchal cord was noted. Excellent tone was noted with spontaneous respiratory effort noted. Cord was clamped and cut after 30 seconds. Infant was handed off to attending nurses and RIM FIRE PRIMING OPERATOR. The placenta was delivered with gentle traction on the cord. The uterus was cleaned of all clots and debris with the dry lap pad. Excess bleeding was noted initially, where 1g IV TXA was requested and administered. The hysterotomy was reapproximated with 0 Vicryl in a running, locked fashion. Second layer of the same suture was used in imbricating fashion to obtain hemostasis. Excellent uterine tone and hemostasis was noted. Serosa abrasion just right/superior to the hysterotomy was made hemostatic with cautery. The adnexa were examined and noted to be normal in appearance. The cul-de-sac and gutters were cleansed with dampened laparotomy sponge, removing any further clots and debris. The Dwaine O retractor was removed. The hysterotomy was reexamined and found to be hemostatic. Socrates was applied across the hysterotomy and serosal tear. The rectus muscles were examined and found to be hemostatic. The fascia was reapproximated with 0 Vicryl in a running fashion. Subcutaneous fat was irrigated and Bovie used on oozing vessels. The subcutaneous fat did not require closure. The skin was closed with a subcuticular stitch of 3-0 monocryl. Surgical glue was applied above this. Patient tolerated procedure well was taken to recovery area in stable condition. Surgical debrief was completed. details: - Liveborn female fetus - weight: 3640g - APGARs were 7 and 9 at 1 and 5 minutes respectively - The did require a brief period of CPAP and then blow by oxygen, likely related to fluoxetine and lamotrigene use. Please see RIM FIRE PRIMING OPERATOR's documentation for complete details. Complications: None Pathology: none sent Surgery Debrief Performed: Yes Condition: stable Disposition: floor
--- NOTE | 2024-12-03 10:24 | P.ANES_ITS ---
Anesthesia Charges Start Date/Time Anesthesia Start Date: 12/03/24 Anesthesia Start Time: 09:00 Stop Date/Time Anesthesia Stop Date: 12/03/24 Anesthesia Stop Time: 10:28 Coding CPT Codes CPT Codes: ANESTH CS DELIVERY - 01233 ([id number]) P2 - PATIENT W/MILD SYST DISEASE, QK - FERRY ENGINEER 2-4 CNCRNT ANES PROC, QX - UNIVERSITY SERVICES PROGRAM ASSOCIATE SVC W/ MD MED DIRECTION
--- NOTE | 2024-12-03 10:24 | W.ANESCHARGE ---
Anesthesia Charges Start Date/Time Anesthesia Start Date: 12/03/24 Anesthesia Start Time: 09:00 Stop Date/Time Anesthesia Stop Date: 12/03/24 Anesthesia Stop Time: 10:28 Coding CPT Codes CPT Codes: ANESTH CS DELIVERY - 64546 ([id number]) P2 - PATIENT W/MILD SYST DISEASE, QK - MACHINE HOSTLER 2-4 CNCRNT ANES PROC, QX - ADMINISTRATIVE SUPPORT ASSOC SVC W/ MD MED DIRECTION
--- NOTE | 2024-12-03 11:02 | P.ANES_ITS ---
Anesthesia Charges Start Date/Time Anesthesia Start Date: 12/03/24 Anesthesia Start Time: 09:00 Stop Date/Time Anesthesia Stop Date: 12/03/24 Anesthesia Stop Time: 10:28 Coding CPT Codes CPT Codes: ANESTH CS DELIVERY - 45542 ([id number]) P2 - PATIENT W/MILD SYST DISEASE, QK - INVESTMENT ACCOUNTING CLERK 2-4 CNCRNT ANES PROC, QX - CAD CAM PROGRAMMER SVC W/ MD MED DIRECTION
--- NOTE | 2024-12-03 11:02 | W.ANESCHARGE ---
Anesthesia Charges Start Date/Time Anesthesia Start Date: 12/03/24 Anesthesia Start Time: 09:00 Stop Date/Time Anesthesia Stop Date: 12/03/24 Anesthesia Stop Time: 10:28 Coding CPT Codes CPT Codes: ANESTH CS DELIVERY - 62906 ([id number]) P2 - PATIENT W/MILD SYST DISEASE, QK - NETWORKING SPECIALIST 2-4 CNCRNT ANES PROC, QX - CREMATORY ATTENDANT SVC W/ MD MED DIRECTION
--- NOTE | 2024-12-03 11:03 | P.NB_ITS ---
Nerve Block Nerve Block Time Seen by Provider: 10:10 Date Seen: 12/03/24 Type of block requested by surgeon for post-operative analgesia: TAP Side: bilateral Time out performed: Yes Verification of patient name: Yes Verification of date of : Yes Site marking: site marked Name of person performing procedure: Chad Continuous monitoring Was continuous monitoring of O2 sat, B/P, insurance sales supervisor, recorded every 15 minutes?: Yes Procedure Checklist: sterile prep, needles and gloves Ultrasound guided. Images saved: Yes Medications given in 5ml increments after negative aspiration: Marcaine %: 0.25 mL: 30 Needle gauge: 20 and Exparel mL: 10 Patient tolerated procedure well: Yes Additional comments: Needle noted between internal oblique and transversus abdominus. Local spread visualized Block Charges Block Charge (with Pro Fee): TAP Bilateral Use of Ultrasound Machine for Block: Yes- US Guidance/pain block
[2024-12-03] MEDS: ACETAMINOPHEN 500 MG TABLET 1000 MG PO ×2 (11:52→17:54)
[2024-12-03] MEDS: KETOROLAC 30 MG/ML inj IVP ×2 (15:55→21:51)
[2024-12-04] MEDS: ACETAMINOPHEN 500 MG TABLET 1000 MG PO (00:25)
[2024-12-04 00:30] VITALS: BP 110/72; PULSE 65; RESP 16; TEMP 36.7; O2SAT 96
[2024-12-04] MEDS: KETOROLAC 30 MG/ML inj IVP ×3 (03:23→15:48)
[2024-12-04 03:38] VITALS: BP 103/67; PULSE 60; RESP 16; TEMP 36.5; O2SAT 95
[2024-12-04 06:32] LABS: Hemoglobin* 11.2 gm/dL (12.0-16.0)
[2024-12-04] MEDS: DOCUSATE SODIUM 100 MG CAPSULE PO (09:15)
[2024-12-04 09:21] VITALS: BP 111/70; PULSE 80; RESP 16; TEMP 37; O2SAT 97
--- NOTE | 2024-12-04 10:54 | P.OBPN_ITS ---
OB - PN:Subj Subjective Date Seen: 12/04/24 Patient comments OB post-: no complaints, pain well controlled, tolerating diet and flatus present [place] status: and doing well [place] feeding status: exclusively Narrative: Luciana feels well.? Her pain is well controlled with current medications.? She has no new complaints.? Urinary output is adequate and she is voiding without difficulty.? Has a good appetite, is tolerating a general diet, is passing flatus, and has not had a bowel movement.? Has scant amount of rubra lochia.? She is ambulating well.?She is and feels it is going well so far. denies questions or concerns at this time. Would like to plan to discharge home tomorrow. OB - PN: Obj Exam Physical Exam: Vital signs: Temp Pulse Resp BP Pulse Ox O2 Del Method 98.6 F 80 16 111/70 97 Room Air 12/04/24 09:21 12/04/24 09:21 12/04/24 09:21 12/04/24 09:21 12/04/24 09:21 12/04/24 09:21 Narrative: GENERAL APPEARANCE:? normal affect, alert, no distress? MOOD:? appropriate? CHEST:? clear to auscultation and percussion? HEART:? regular rate and rhythm? ABDOMEN:? soft, non-tender the uterine fundus is U/3 and is appropriate for the stage of recovery. Incision dressing is clean, dry and intact.? EXTREMITIES:? normal and no edema? OB - PN: Obj Data Labs Labs: Laboratory Results - last 24 hr 12/04/24 06:00 Hgb 11.2 L OB - PN: A/P Delivery Assessment and Plan (1) pyelectasis: Status: Acute (2) High risk medication use: Status: Acute (3) ADHD (attention deficit hyperactivity disorder): Status: Acute (4) Anxiety: Status: Acute (5) Autism: Status: Acute (6) Malpresentation of fetus: Status: Acute (7) Lactating mother: Status: Acute (8) care following delivery: Status: Acute Plan day: 1 Plan: routine care Comments: Anticipate discharge home tomorrow.
[2024-12-04 17:20] LABS: Rapid Plasma Reagin (RPR) Non Reactive (Non Reactive)
[2024-12-04 17:45] VITALS: BP 108/69; PULSE 75; RESP 16; TEMP 36.8; O2SAT 97
[2024-12-04] MEDS: IBUPROFEN 600 MG TABLET PO (23:15)
[2024-12-05 00:59] VITALS: BP 100/67; PULSE 72; RESP 16; TEMP 36.5; O2SAT 97
[2024-12-05] MEDS: ACETAMINOPHEN 500 MG TABLET 1000 MG PO ×2 (04:01→11:13)
[2024-12-05] MEDS: DOCUSATE SODIUM 100 MG CAPSULE PO (07:29)
[2024-12-05] MEDS: IBUPROFEN 600 MG TABLET PO (07:29)
--- NOTE | 2024-12-05 07:33 | P.DS_ITS ---
DS: Providers Provider Date Seen: 12/05/24 Date of admission: 12/03/24 08:05 Primary care physician: Benjamin Tracey PA-C Admitting Clinician: Paola Liz MD Attending Physician on discharge: Skylar WILLIS Date of Discharge: 12/05/24 DS: Diagnosis Discharge Diagnosis (1) care following delivery: Status: Acute (2) Lactating mother: Status: Acute (3) High risk medication use: Status: Acute (4) Autism: Status: Acute (5) Anxiety: Status: Acute (6) ADHD (attention deficit hyperactivity disorder): Status: Acute Exam Narrative: Exam Narrative: GENERAL APPEARANCE:? normal affect, alert, no distress MOOD:? appropriate CHEST:? clear to auscultation HEART:? regular rate and rhythm ABDOMEN:? soft, non-tender the uterine fundus is At Umbilicus, Midline and is appropriate for the stage of recovery. EXTREMITIES:? normal and mild edema Incision: Clean, dry and intact with no erythema or discharge Const: Vital Signs, click to edit/add: Vital Signs - 24 hr 12/04/24 09:21 12/04/24 17:45 12/05/24 00:59 Temperature 98.6 F 98.2 F 97.7 F Pulse Rate [Pulse Oximeter] 80 75 72 Respiratory Rate 16 16 16 Blood Pressure [Le ft Arm] 111/70 108/69 100/67 Pulse Oximetry 97 97 97 Oxygen Delivery Me thod Room Air Room Air Room Air OB - DS: Summary Hospital Course Hospital Course: Luciana is a .29 y.o. G 2 P 1011 who was admitted to [facility] for Breech presentation.? She had a section that was uncomplicated. The patient feels well.? The pain is well controlled with current medications.? She has no new complaints.? She is breast feeding and reports things are going well. the patient has done well.? Vitals have been stable.? She has remained afebrile.? Has a good appetite, is tolerating a general diet.? She is voiding without difficulty.? She is passing gas and has had a bowel movement.? She is ambulating and denies any dizziness.? Has small amount of rubra lochia. She is planning an IUD for prevention.? ?? Problems:none ?? plan:? Discharge home with baby.? Follow up in 1-2 weeks and 6 weeks.? , may see if needed? Hgb 11.2. ?? Call for signs/symptoms of preeclampsia? Peripartum Data Infant delivery method: Primary C/S; Non-Labored Episiotomy description: None Procedures: Procedures Operation Date: 12/03/24 09:30 Actual Procedure Side Surgeon p Primary Section Paola Liz MD complications: none Gender: Female Infant Discharge Plan: Home Status at Discharge Overall status at discharge: patient is progressing back to baseline Time Spent with Patient Time attestation: Total time spent providing and/or coordinating discharge services: Time spent: Less than 30 minutes Discharge Plan Discharge Disposition: Home, Self-Care Date of Admission: 12/03/24 08:05 Attending Provider on Discharge: Alka Dang Primary Care Provider: Benjamin Tracey Condition: Stable Anticipated Discharge Date/Time: 12/05/24 12:00 Discharge Medications: New docusate sodium 100 mg Capsule 100 mg PO BID PRN (Reason: Constipation) Qty: 100 0RF ibuprofen 600 mg Tablet 600 mg PO Q6H PRN (Reason: Pain) Qty: 30 0RF oxycodone 5 mg Tablet 5 mg PO 3XD PRN (Reason: Pain) Qty: 21 0RF Continued [id number] 3-fat com #1 27-1-300 mg capsule 1 cap PO DAILY lamotrigine 100 mg tablet 100 mg PO DAILY fluoxetine 20 mg capsule 40 mg PO DAILY Discharge Orders: Discharge Order (Routine); Ordered 12/05/24 Ordered By: Alka Dang Consulting provider completed their portion of the discharge: Yes Patient Education: OB /Breast Feeding Additional Instructions: Discharge instructions were reviewed with the patient including signs and symptoms of infection and home going medications RESTRICTIONS: Lifting Restrictions: 20 pounds for 6 weeks No high impact or core exercises: 6 weeks Do not submerge incision under water X 2 weeks? Nothing vaginally for 6 weeks: no tampons or intercourse Do not drive while taking narcotic pain medication(s) Off Work or School for a minimum of 8 weeks Symptoms to report to doctor: * Bleeding that saturates more than one pad per hour * Passing clots larger than the size of a golf ball * Pain not relieved by prescribed medication * Fever above 100.4 degrees Fahrenheit * A foul vaginal odor * Difficulty in emotions, mood, and functions * Thoughts of hurting yourself and/or * Painful, reddened area in your breast * Any drainage, redness, or tenderness in your IV/epidural site * Severe headache that doesn't improve after taking medications * Changes in vision, including temporary loss of vision, blurred vision, and/or light sensitivity * Upper abdominal pain (usually under ribs on the right side) * Decrease in urination or painful, frequent urinating * Chest pain * Shortness of breath * Tenderness or pain with redness and/swelling in the calf(s) of your leg APPOINTMENTS: 1. 2-week visit: incision check, discuss infant care/feeding concerns, review control options and screen for anxiety/depression. 2. 6-week visit for an annual exam. consultation services are available to all mothers and babies for the first year after delivery.? To make an appointment, please call [phone].. For pain control of perineum, breast and pelvic pain, take 600 mg Ibuprofen every 6 hours as needed by mouth or 1000 mg acetaminophen (Tylenol) every 6 hours by mouth as needed. You can alternate these so you are taking something every 3 hours as needed. A small amount of oxycodone will also be sent home with you for pain control. Use sparingly. A heating pad can also be used for your abdomen or breasts. You may also take docusate sodium up to twice daily to soften your stools and help to prevent constipation. You may wean off of it when your stools return to normal.? Activity Level: Activity as Tolerated Discharge Diet: Regular Follow Up Appointments: [facility] [Provider Group] Forms: [facility] Info Instructions
[2024-12-05 08:18] VITALS: BP 113/77; PULSE 80; RESP 16; TEMP 36.9
== END 2024-12-05 12:18 | disposition home or self-care (01) | DRG 540 ==
PROVIDERS: Admitting Provider Obstetrics & Gynecology; PCP Physician Assistant Medical; Visit Provider Obstetrics & Gynecology
PROC: 10D00Z1 Extraction of Products of Conception, Low, Open Approach (ICD-10-PCS; CPT 59514; principal; 2024-12-03 09:30)
DX: O32.1XX0 Maternal care for breech presentation, not applicable or unspecified (principal); Z3A.39 39 weeks gestation of pregnancy; Z37.0 Single live birth; O99.344 Other mental disorders complicating childbirth; F41.9 Anxiety disorder, unspecified; F84.0 Autistic disorder; F90.9 Attention-deficit hyperactivity disorder, unspecified type; Z79.899 Other long term (current) drug therapy; O35.EXX0 Maternal care for other (suspected) fetal abnormality and damage, fetal genitourinary anomalies, not applicable or unspecified; G89.18 Other acute postprocedural pain; Z87.42 Personal history of other diseases of the female genital tract
CPT/HCPCS: 01961; 36415; 64488; 76942; 85018; 85025; 86592; 86850; 86900; 86901; A4314; A9270; J0665; J0666; J0736; J1100; J1580; J1885; J2371; J2405; J2590; J7120